=== PATIENT | male | born 1975 | race Caucasian/White ===

== ENCOUNTER 2016-12-08 14:00 | Emergency (ER) | payer OTHER ==
[~2016-12-08] VITALS: Ht 182.9 cm; Wt 90.7 kg
[2016-12-08] MEDS ORDERED: IBUP600T26 PO (14:14)
[2016-12-08] MEDS: ACETAMINOPHEN 325 MG TAB PO ONE (14:54)
[2016-12-08] MEDS ORDERED: AZIT500T2 PO (15:27)
[2016-12-08] MEDS: AZITHROMYCIN 250 MG TAB PO ONE (15:35)
[2016-12-08 15:42] VITALS: BP 134/72
--- NOTE | 2016-12-09 06:46 | REP ---
CHEST, TWO VIEWS: There is no evidence of acute infiltrate. No pleural effusion is seen. The heart is normal in size. The mediastinal silhouette is unremarkable. The visualized osseous structures are intact. IMPRESSION: No acute pulmonary disease. Signed by Curt Aguirre MD 12/09/2016 01:52 P
== END 2016-12-08 15:55 | disposition home or self-care (01) ==
LOC: M ED 15:00
DX: R50.9 Fever, unspecified (principal); J20.9 Acute bronchitis, unspecified; H91.91 Unspecified hearing loss, right ear

== ENCOUNTER → 2020-12-27 | Outpatient (CLI) | payer OTHER ==
[~2020-12-27] MED LIST: AZIT500T5 PO; IBUP-1022 PO
--- NOTE | 2020-12-27 17:58 | REP ---
INDICATION: DYSURIA. COMPARISON: None. TECHNIQUE: Real-time sonographic evaluation of urinary bladder performed. FINDINGS: Bladder measures 13.3 x 10.6 x 7.1 cm, total volume 654 cc. The bladder completely empties with voiding, with no postvoid residual. There is no bladder wall mass. No calculus is seen. There are ureteral jets identified in the urinary bladder with Doppler color evaluation. IMPRESSION: Unremarkable bladder ultrasound. <Electronically signed by Curt Aguirre > 12/27/20 [id number]
== END ==
LOC: M RAD 16:01
PROVIDERS: ATTEND Internal Medicine
DX: R30.0 Dysuria (principal)